=== PATIENT | female | born 1960 | race Caucasian/White ===

== ENCOUNTER 2023-08-05 15:36 | Inpatient (IN) ==
[2023-08-05] MEDS ORDERED: LACTATED RINGERS 1,000 ML IV ONE ×2 (15:56→16:51)
[2023-08-05] MEDS ORDERED: 0.9 % SODIUM CHLORIDE 1,000 ML IV ONE (16:04)
[2023-08-05 16:13] LABS: POC Calcium, Ionized 1.04 (1.16-1.32); POC Creatinine 3.3 (0.6-1.2); POC Potassium 4.6 (3.3-5.1)
[2023-08-05 16:45] LABS: Basophils # (Auto) 0.13 K/mcL (0.00-0.30); Basophils % (Auto) 1.1 % (0.0-2.0); Eosinophils # (Auto) 0.28 K/mcL (0.00-0.70); Eosinophils % (Auto) 2.3 % (0.0-7.0); Hematocrit 38.9 % (34.1-44.9); Hemoglobin 12.7 g/dL (11.2-15.7); Lymphocytes # (Auto) 3.32 K/mcL (1.50-4.80); Lymphocytes % (Auto) 27.1 % (15.5-49.0); Mean Cell Volume 89.8 fL (80.0-100.0); Mean Corpuscular HGB Conc 32.6 g/dL (31.0-36.0); Mean Platelet Volume 10.3 fL (8.8-12.5); Monocytes # (Auto) 1.06 K/mcL (0.10-0.90); Monocytes % (Auto) 8.6 % (1.0-12.0); Neutrophils % (Auto) 60.4 % (38.0-78.0); Platelet Count 278 K/mcL (140-440); RBC 4.33 M/mcL (3.59-5.38); Red Cell Distribution Width 12.6 % (11.5-14.5); WBC 12.3 K/mcL (4.5-11.0)
[2023-08-05 17:12] LABS: ALT/SGPT 16 U/L (<40); AST/SGOT 15 U/L (<32); Albumin 4.9 gm/dL (3.2-5.2); Albumin/Globulin Ratio 1.4 (1.0-2.3); Alkaline Phosphatase 94 U/L (39-117); Bilirubin,Total 0.5 mg/dL (0.1-1.0); Blood Urea Nitrogen 55 mg/dL (8-23); Calcium 10.6 mg/dL (8.6-10.4); Carbon Dioxide 23 mmol/L (22-30); Chloride 97 mmol/L (96-108); Globulin 3.5 gm/dL (2.2-3.7); Glomerular Filtration Rate 16; Glucose 90 mg/dL (70-105)
[2023-08-05] MEDS ORDERED: DEXTROSE 50% 50 ML VIAL IV PRN (20:10)
[2023-08-05] MEDS ORDERED: LACTULOSE 20 GM/30 ML ORAL.SOL PO PRN (20:10)
[2023-08-05] MEDS ORDERED: SENNOSIDES 1 TABLET PO PRN (20:10)
[2023-08-05] MEDS ORDERED: IPRATROPIUM/ALBUTEROL 3 ML AMPUL.NEB NEB PRN (20:10)
[2023-08-05] MEDS ORDERED: ACETAMINOPHEN 325 MG TABLET PO PRN (20:10)
[2023-08-05] MEDS ORDERED: DEXTROSE 31 GM ORAL.SUSP PO PRN (20:10)
[2023-08-05] MEDS ORDERED: ONDANSETRON 4 MG/2 ML VIAL IV PRN (20:10)
[2023-08-05 21:15] LABS: Appearance,Urine CLOUDY (Clear); Bacteria,Urine FEW /hpf (0); Bilirubin,Urine Negative (Negative); Color,Urine YELLOW; Culture Indicated,Urine Yes; Glucose,Urine (UA) >=500 mg/dL (Negative); Ketones,Urine Negative (Negative); Leukocyte Esterase,Urine 500 /uL (Negative); Mucus,Urine FEW /hpf; Nitrate,Urine Negative (Negative); Protein,Urine 30 mg/dL (Negative); Specific Gravity,Urine 1.006 (1.000-1.035); Urine Blood 0.03 mg/dL (Negative); Urine Hyaline Cast 2 /lph (0-2); Urine RBC 16 /hpf (0-3); Urine Squamous Epithelial Cell 2 /hpf (0-4); Urine WBC > 182 /hpf (0-4); Urobilinogen,Urine Negative
[2023-08-05] MEDS: DOCUSATE SODIUM 100 MG CAPSULE PO SCH (21:57)
[2023-08-05] MEDS ORDERED: GABAPENTIN 100 MG CAPSULE PO ONE ×2 (22:04→22:09)
[2023-08-05] MEDS: 0.9 % SODIUM CHLORIDE 1,000 ML IV SCH (22:16)
[2023-08-05] MEDS: 0.9 % SODIUM CHLORIDE 10 ML SYRINGE IV SCH (22:17)
[2023-08-05] MEDS: PRAMIPEXOLE 0.25 MG TABLET PO PRN (22:17)
[2023-08-05] MEDS: INSULIN LISPRO 1 UNIT/0.01 ML UNIT SQ SCH (22:34)
[2023-08-06] MEDS: 0.9 % SODIUM CHLORIDE 10 ML SYRINGE IV SCH ×3 (06:00→20:44)
[2023-08-06 06:39] LABS: Basophils # (Auto) 0.07 K/mcL (0.00-0.30); Basophils % (Auto) 0.9 % (0.0-2.0); Eosinophils % (Auto) 4.1 % (0.0-7.0); Hematocrit 34.1 % (34.1-44.9); Hemoglobin 10.6 g/dL (11.2-15.7); Lymphocytes # (Auto) 1.87 K/mcL (1.50-4.80); Lymphocytes % (Auto) 25.4 % (15.5-49.0); Mean Cell Volume 93.4 fL (80.0-100.0); Mean Corpuscular HGB Conc 31.1 g/dL (31.0-36.0); Mean Platelet Volume 10.5 fL (8.8-12.5); Monocytes # (Auto) 0.72 K/mcL (0.10-0.90); Monocytes % (Auto) 9.8 % (1.0-12.0); Platelet Count 235 K/mcL (140-440); RBC 3.65 M/mcL (3.59-5.38); Red Cell Distribution Width 12.7 % (11.5-14.5); WBC 7.4 K/mcL (4.5-11.0)
[2023-08-06 07:00] LABS: ALT/SGPT 12 U/L (<40); AST/SGOT 10 U/L (<32); Albumin 3.7 gm/dL (3.2-5.2); Albumin/Globulin Ratio 1.5 (1.0-2.3); Alkaline Phosphatase 72 U/L (39-117); Bilirubin,Total 0.4 mg/dL (0.1-1.0); Blood Urea Nitrogen 48 mg/dL (8-23); Carbon Dioxide 23 mmol/L (22-30); Chloride 98 mmol/L (96-108); Globulin 2.5 gm/dL (2.2-3.7); Glomerular Filtration Rate 26; Glucose 230 mg/dL (70-105)
[2023-08-06] MEDS: 0.9 % SODIUM CHLORIDE 1,000 ML IV SCH ×2 (07:05→16:10)
[2023-08-06 07:10] LABS: Estimated Average Glucose(eAG) 355 mg/dL
[2023-08-06] MEDS: DOCUSATE SODIUM 100 MG CAPSULE PO SCH ×2 (07:14→20:44)
[2023-08-06] MEDS: INSULIN LISPRO 1 UNIT/0.01 ML UNIT SQ SCH ×4 (07:33→19:13)
[2023-08-06] MEDS ORDERED: ALBUTEROL SULFATE 60 PUFF INHALER INH PRN (16:43)
[2023-08-06] MEDS ORDERED: DEXTROSE 31 GM ORAL.SUSP PO PRN (16:44)
[2023-08-06] MEDS ORDERED: DEXTROSE 50% 50 ML VIAL IV PRN (16:44)
[2023-08-06] MEDS: PRAMIPEXOLE 0.25 MG TABLET PO PRN (18:58)
[2023-08-06] MEDS: Sacubitril-Valsartan [Entresto] 24-26 mg PO SCH (20:44)
[2023-08-06] MEDS: SULFAMETHOXAZOLE/TRIMETHOPRIM 1 TABLET PO SCH (20:44)
[2023-08-06] MEDS: FERROUS GLUCONATE 324 MG TABLET PO SCH (20:44)
[2023-08-06] MEDS: Budesonide-Glycopyr-Formoterol [Breztri] INH SCH (20:44)
[2023-08-06] MEDS: APIXABAN 5 MG TABLET PO SCH (20:44)
[2023-08-06] MEDS ORDERED: INSULIN GLARGINE, HUMAN 1 UNIT/0.01 ML SQ SCH (21:00)
[2023-08-06] MEDS ORDERED: GABAPENTIN 100 MG CAPSULE PO SCH (21:00)
[2023-08-06] MEDS ORDERED: PRAMIPEXOLE 0.25 MG TABLET PO SCH (21:00)
[2023-08-06] MEDS ORDERED: GABAPENTIN 100 MG CAPSULE PO ONE (21:50)
[2023-08-07] MEDS: 0.9 % SODIUM CHLORIDE 1,000 ML IV SCH (01:54)
[2023-08-07] MEDS: 0.9 % SODIUM CHLORIDE 10 ML SYRINGE IV SCH (06:24)
[2023-08-07 06:49] LABS: Basophils # (Auto) 0.07 K/mcL (0.00-0.30); Basophils % (Auto) 1.1 % (0.0-2.0); Eosinophils # (Auto) 0.34 K/mcL (0.00-0.70); Eosinophils % (Auto) 5.4 % (0.0-7.0); Hematocrit 31.5 % (34.1-44.9); Hemoglobin 9.7 g/dL (11.2-15.7); Lymphocytes % (Auto) 31.6 % (15.5-49.0); Mean Cell Volume 93.5 fL (80.0-100.0); Mean Corpuscular HGB Conc 30.8 g/dL (31.0-36.0); Mean Platelet Volume 10.4 fL (8.8-12.5); Monocytes # (Auto) 0.65 K/mcL (0.10-0.90); Monocytes % (Auto) 10.3 % (1.0-12.0); Neutrophils % (Auto) 51.1 % (38.0-78.0); Platelet Count 214 K/mcL (140-440); RBC 3.37 M/mcL (3.59-5.38); WBC 6.3 K/mcL (4.5-11.0)
[2023-08-07] MEDS ORDERED: PANTOPRAZOLE 40 MG TABLET PO SCH (07:30)
[2023-08-07 07:33] LABS: ALT/SGPT 12 U/L (<40); AST/SGOT 12 U/L (<32); Albumin 3.4 gm/dL (3.2-5.2); Albumin/Globulin Ratio 1.5 (1.0-2.3); Alkaline Phosphatase 63 U/L (39-117); Bilirubin,Total 0.2 mg/dL (0.1-1.0); Blood Urea Nitrogen 34 mg/dL (8-23); Calcium 8.5 mg/dL (8.6-10.4); Carbon Dioxide 22 mmol/L (22-30); Chloride 107 mmol/L (96-108); Globulin 2.2 gm/dL (2.2-3.7); Glomerular Filtration Rate 34; Glucose 101 mg/dL (70-105)
[2023-08-07] MEDS: INSULIN LISPRO 1 UNIT/0.01 ML UNIT SQ SCH (07:53)
[2023-08-07 08:13] VITALS: TEMP 96.6
[2023-08-07] MEDS: APIXABAN 5 MG TABLET PO SCH (08:35)
[2023-08-07] MEDS: SULFAMETHOXAZOLE/TRIMETHOPRIM 1 TABLET PO SCH (08:36)
[2023-08-07] MEDS: DOCUSATE SODIUM 100 MG CAPSULE PO SCH (08:49)
[2023-08-07] MEDS ORDERED: ATORVASTATIN 40 MG TABLET PO SCH (09:00)
[2023-08-07] MEDS ORDERED: DILTIAZEM 180 MG CAP.XL.24H PO SCH (09:00)
[2023-08-07 10:10] VITALS: O2SAT 98
[2023-08-07] MEDS: FERROUS GLUCONATE 324 MG TABLET PO SCH (10:10)
[2023-08-07] MEDS: Budesonide-Glycopyr-Formoterol [Breztri] INH SCH (10:10)
[2023-08-07] MEDS: Sacubitril-Valsartan [Entresto] 24-26 mg PO SCH (10:11)
== END 2023-08-07 10:20 | disposition home or self-care (01) | DRG 683 ==
LOC: ED 15:36 → MEDSUR 20:08
PROVIDERS: ADMIT Internal Medicine; ATTEND Internal Medicine

== ENCOUNTER 2023-11-13 14:33 | Observation (INO) ==
[2023-11-13 15:20] LABS: Basophils # (Auto) 0.06 K/mcL (0.00-0.30); Basophils % (Auto) 0.8 % (0.0-2.0); Eosinophils # (Auto) 0.27 K/mcL (0.00-0.70); Eosinophils % (Auto) 3.7 % (0.0-7.0); Hematocrit 34.1 % (34.1-44.9); Hemoglobin 10.5 g/dL (11.2-15.7); Lymphocytes # (Auto) 1.72 K/mcL (1.50-4.80); Lymphocytes % (Auto) 23.7 % (15.5-49.0); Mean Cell Volume 94.2 fL (80.0-100.0); Mean Corpuscular HGB Conc 30.8 g/dL (31.0-36.0); Monocytes # (Auto) 0.61 K/mcL (0.10-0.90); Monocytes % (Auto) 8.4 % (1.0-12.0); Neutrophils % (Auto) 63.3 % (38.0-78.0); Platelet Count 215 K/mcL (140-440); RBC 3.62 M/mcL (3.59-5.38); Red Cell Distribution Width 13.6 % (11.5-14.5); WBC 7.3 K/mcL (4.5-11.0)
[2023-11-13 16:37] LABS: ABG Methemoglobin 0.1 % (0.4-1.5); VBG Base Excess 0 (-2-3); VBG HCO3 25.8 mmol/L (24.0-28.0); VBG Oxygen Saturation 76.1 % (40.0-70.0); VBG PCO2 49.5 mmHg (41.0-51.0); VBG PH 7.34 U (7.32-7.42); VBG PO2 42.6 mmHg (25.0-40.0); VBG Total CO2 27.3 mmol/L (25.0-29.0)
[2023-11-13 17:51] LABS: ALT/SGPT 36 U/L (<40); AST/SGOT 51 U/L (<32); Albumin 4.4 gm/dL (3.2-5.2); Albumin/Globulin Ratio 1.7 (1.0-2.3); Alkaline Phosphatase 74 U/L (39-117); Bilirubin,Total 0.4 mg/dL (0.1-1.0); Blood Urea Nitrogen 25 mg/dL (8-23); Calcium 8.5 mg/dL (8.6-10.4); Carbon Dioxide 22 mmol/L (22-30); Chloride 104 mmol/L (96-108); Globulin 2.6 gm/dL (2.2-3.7); Glomerular Filtration Rate 43; Glucose 156 mg/dL (70-105)
[2023-11-13] MEDS: FUROSEMIDE 40 MG/4 ML VIAL IV ONE (18:46)
[2023-11-13] MEDS ORDERED: POLYETHYLENE GLYCOL 3350 17 GM PACKET PO PRN (20:46)
[2023-11-13] MEDS ORDERED: ONDANSETRON 4 MG/2 ML VIAL IV PRN (20:46)
[2023-11-13] MEDS ORDERED: METOPROLOL TARTRATE 5 MG/5 ML VIAL IV PRN (20:46)
[2023-11-13] MEDS ORDERED: MAGNESIUM SULFATE 2 GM/50 ML BAG IV PRN (20:46)
[2023-11-13] MEDS ORDERED: IPRATROPIUM/ALBUTEROL 3 ML AMPUL.NEB NEB PRN (20:46)
[2023-11-13] MEDS ORDERED: DEXTROSE 31 GM ORAL.SUSP PO PRN (20:46)
[2023-11-13] MEDS ORDERED: SENNOSIDES 1 TABLET PO PRN (20:46)
[2023-11-13] MEDS ORDERED: DEXTROSE 50% 50 ML VIAL IV PRN (20:46)
[2023-11-13] MEDS ORDERED: POTASSIUM CHLORIDE 20 MEQ TABLET PO PRN ×2 (20:46)
[2023-11-13] MEDS ORDERED: POTASSIUM CHLORIDE 40 MEQ in DEXTROSE 5% IN WATER 500 ML IV PRN (20:46)
[2023-11-13] MEDS: INSULIN LISPRO 1 UNIT/0.01 ML UNIT SQ SCH (21:16)
[2023-11-13] MEDS: DOCUSATE SODIUM 100 MG CAPSULE PO SCH (21:16)
[2023-11-13] MEDS: IPRATROPIUM/ALBUTEROL 3 ML AMPUL.NEB NEB ONE (21:45)
[2023-11-14 06:00] LABS: Basophils # (Auto) 0.06 K/mcL (0.00-0.30); Basophils % (Auto) 0.9 % (0.0-2.0); Eosinophils # (Auto) 0.25 K/mcL (0.00-0.70); Eosinophils % (Auto) 3.7 % (0.0-7.0); Hematocrit 34.7 % (34.1-44.9); Hemoglobin 10.4 g/dL (11.2-15.7); Lymphocytes % (Auto) 19.5 % (15.5-49.0); Mean Cell Volume 94.3 fL (80.0-100.0); Mean Platelet Volume 9.5 fL (8.8-12.5); Monocytes # (Auto) 0.62 K/mcL (0.10-0.90); Monocytes % (Auto) 9.3 % (1.0-12.0); Neutrophils % (Auto) 66.3 % (38.0-78.0); Platelet Count 208 K/mcL (140-440); RBC 3.68 M/mcL (3.59-5.38); Red Cell Distribution Width 13.6 % (11.5-14.5); WBC 6.7 K/mcL (4.5-11.0)
[2023-11-14 06:53] LABS: ALT/SGPT 25 U/L (<40); AST/SGOT 26 U/L (<32); Albumin 4.1 gm/dL (3.2-5.2); Albumin/Globulin Ratio 1.6 (1.0-2.3); Alkaline Phosphatase 68 U/L (39-117); Bilirubin,Direct < 0.2 mg/dL (0-0.3); Bilirubin,Total 0.4 mg/dL (0.1-1.0); Blood Urea Nitrogen 22 mg/dL (8-23); Calcium 8.7 mg/dL (8.6-10.4); Carbon Dioxide 29 mmol/L (22-30); Chloride 103 mmol/L (96-108); Globulin 2.6 gm/dL (2.2-3.7); Glomerular Filtration Rate 48; Glucose 211 mg/dL (70-105); Lactate Dehydrogenase 185 U/L (135-225); Phosphorous 4.1 mg/dL (2.5-4.5); Triglycerides 86 mg/dL (<150); Uric Acid 6.5 mg/dL (2.5-8.0)
[2023-11-14] MEDS: FUROSEMIDE 40 MG/4 ML VIAL IV SCH (07:21)
[2023-11-14] MEDS: PANTOPRAZOLE 40 MG TABLET PO SCH (08:44)
[2023-11-14] MEDS: APIXABAN 5 MG TABLET PO SCH (08:44)
[2023-11-14] MEDS: DILTIAZEM 180 MG CAP.XL.24H PO SCH (08:44)
[2023-11-14] MEDS: ROSUVASTATIN 20 MG TABLET PO SCH (08:48)
[2023-11-14] MEDS: Sacubitril-Valsartan [Entresto] 24-26 mg tablet PO SCH (08:49)
[2023-11-14] MEDS ORDERED: ATORVASTATIN 20 MG TABLET PO SCH (09:00)
[2023-11-14] MEDS: ACETAMINOPHEN 325 MG TABLET PO PRN (16:00)
[2023-11-14] MEDS: PRAMIPEXOLE 0.25 MG TABLET PO SCH (20:28)
[2023-11-14] MEDS: GABAPENTIN 100 MG CAPSULE PO SCH (20:28)
[2023-11-14] MEDS: INSULIN GLARGINE, HUMAN 1 UNIT/0.01 ML SQ SCH (20:29)
[2023-11-15 03:27] VITALS: O2SAT 100
[2023-11-15 11:39] VITALS: TEMP 98
== END 2023-11-15 12:15 | disposition home or self-care (01) ==
LOC: MEDSUR 14:33 → ED 14:33 → MEDSUR 20:49
PROVIDERS: ADMIT Internal Medicine; ATTEND Internal Medicine